=== PATIENT | male | born 1955 | race African-American/Black ===

== ENCOUNTER 2016-10-05 08:21 | Day surgery (SDC) | payer OTHER ==
[2016-10-02 11:03] VITALS: BMI 25.6
[2016-10-05] MEDS ORDERED: LEVOFLOXACIN 500 MG IVPB 100 ML IVPB ONE (10:13)
[2016-10-05] MEDS ORDERED: MIDAZOLAM HCL 2 MG/2 ML SINGLE DOSE VIAL ONE (10:19)
[2016-10-05] MEDS ORDERED: PROPOFOL 20 ML ONE ×2 (10:19)
[2016-10-05] MEDS ORDERED: LEVOFLOXACIN 500 MG PREMIX BAG IVPB ONE (10:37)
[2016-10-05] MEDS ORDERED: ONDANSETRON 4 MG/2 ML VIAL IVPUSH PRN (10:50)
[2016-10-05] MEDS ORDERED: LACTATED RINGERS SOLUTION 1,000 ML IV SCH (11:00)
[2016-10-05] MEDS ORDERED: hydrALAZINE HCL 20 MG/ML VIAL ONE (12:12)
[2016-10-05] MEDS ORDERED: hydrALAZINE HCL 20 MG/ML VIAL IVPUSH ONE (12:15)
[2016-10-05] MEDS ORDERED: ACETAMINOPHEN 325 MG TABLET (FP) PO PRN (12:21)
--- NOTE | 2016-10-05 13:41 | OP ---
Operative Note - Note: Operative Date: 10/05/16 Pre-Operative Diagnosis: left one cm ureteral stone Operation: cystoscopy/left retrograde pyelogram/left ureteroscopic laser lithotripsy/left ureteral stone basketing/attempted left ureteral stent placement Findings: one cm left ureteral distal stone unable to place stent at end of procedure/patient for left antegrade stent placement by radiology Post-Operative Diagnosis: Same as Pre-op Surgeon: Baldemar Reid Anesthesia: General Operative Report Dictated: Yes
[2016-10-05] MEDS: oxyCODONE HCL 5 MG TABLET PO PRN (16:37)
[2016-10-05] MEDS: DEXTROSE 5%-0.45% SALINE 1,000 ML IV SCH (17:03)
[2016-10-06] MEDS: DEXTROSE 5%-0.45% SALINE 1,000 ML IV SCH (06:23)
[2016-10-06 06:28] VITALS: BP 154/87; TEMP 97.8
--- NOTE | 2016-10-06 07:45 | OP ---
DATE OF OPERATION: 10/05/2016 PREOPERATIVE DIAGNOSIS: Left ureteral stone. POSTOPERATIVE DIAGNOSIS: Left ureteral stone. PROCEDURE: Cystoscopy, left retrograde pyelogram, left ureteroscopic laser lithotripsy, left ureteroscopic stone basketing, and attempted left stent placement. ATTENDING: Baldemar Teixeira MD ANESTHESIA: General. OPERATION: The patient was brought in the operating room, placed in the supine position on the operating room table. General anesthesia was administered. Levaquin was given preoperatively for surgical prophylaxis. At this point, patient was placed in the dorsal lithotomy position and prepped and draped in the usual sterile manner. Cystoscopy was performed, and the left ureteral orifice was identified. A retrograde pyelogram showed a filling defect in the distal third of the ureter with a stone measuring greater than 1 cm. A wire was then passed proximally. It was noted to be within the collecting system of the kidney. A ureteroscope was then placed into the ureter up to the level of the stone. Under direct visualization, the stone was fragmented utilizing a holmium laser. With fragmentation performed, the stone fragments were removed with a stone basket. No evidence of perforation was noted. It was noted on the left ureteroscopic stone basket that the wire had become dislodged and was in the bladder. Attempts at passing the wire proximally were unsuccessful. Significant effort was taken to place a wire into the ureter and collecting system without success. Due to the need for a drainage tube for the kidney, it was decided that the patient would require a left percutaneous nephrostomy tube with internalization of a stent in an antegrade fashion. Radiology was called, and the patient was sent to Radiology for placement of nephrostomy tube to avoid complications. DISPOSITION: The disposition of the patient was to the recovery to await for percutaneous nephrostomy tube placement. Rakan [id number]
[2016-10-06] MEDS: oxyCODONE HCL 5 MG TABLET PO PRN (09:25)
[2016-10-06] MEDS ORDERED: amLODIPine BESYLATE 10 MG TABLET (FP) PO SCH (10:00)
[2016-10-06] MEDS ORDERED: LEVOFLOXACIN 500 MG TABLET (FP) PO SCH (10:00)
[2016-10-06 14:15] VITALS: PULSE 63
--- NOTE | 2016-10-06 14:38 | PATH ---
Surgical Pathology Report Patient Name: OANH FRYE [facility]. Rec. #: [id number] /Age/Gender: 1955 (Age: 61) / M Account: [id number] Location: [address] [place] [address] Taken: 10/05/2016 Received: 10/05/2016 Reported: 10/06/2016 Physicians: Baldemar Reid Specimen(s) Received LEFT URETERAL CALCULI Clinical History Left ureteral calculi Final Diagnosis CALCULUS, LEFT URETER, EXTRACTION: CALCULUS (GROSS EXAM). SPECIMEN SENT FOR CHEMICAL ANALYSIS. Electronically Signed Alfredito Will M.D. Gross Description Received fresh labeled "left ureteral calculi" are 3 tapia, irregular calculi ranging from 0.1-0.3 cm in greatest dimension. The specimens are sent for chemical analysis. 10/05/201610/05/2016
== END 2016-10-06 17:23 | disposition home or self-care (01) ==
LOC: JASUSAT 08:21 → JASU-SURG 08:21 → J6S 14:53 → JASUSAT 10-06 17:23
PROVIDERS: ATTEND Urology
PROC: 0TC78ZZ Extirpation of Matter from Left Ureter, Via Natural or Artificial Opening Endoscopic (ICD-10-PCS; principal; 2016-10-05 10:00)
PROC: BT1FYZZ Fluoroscopy of Left Kidney, Ureter and Bladder using Other Contrast (ICD-10-PCS; 2016-10-05 10:00)
DX: N20.1 Calculus of ureter (principal)
CPT/HCPCS: 36415; 75984-TC; 76000-TC; 76098-TC; 76998-TC; 82360; 87086; 87899; 88300-TC; 94760; A4358; C1729; C1769

== ENCOUNTER 2016-10-12 08:48 | Day surgery (SDC) | payer OTHER ==
[2016-10-09 10:37] VITALS: BMI 25.6
[2016-10-12 09:09] VITALS: TEMP 98.1
[2016-10-12 12:07] VITALS: BP 153/80
[2016-10-12 14:15] VITALS: PULSE 88
== END 2016-10-12 14:15 | disposition home or self-care (01) ==
LOC: JRADIR 08:48
PROVIDERS: ATTEND Radiology Diagnostic Radiology
PROC: 0TP5X0Z Removal of Drainage Device from Kidney, External Approach (ICD-10-PCS; principal; 2016-10-12)
PROC: 0T778DZ Dilation of Left Ureter with Intraluminal Device, Via Natural or Artificial Opening Endoscopic (ICD-10-PCS; 2016-10-12)
DX: N13.9 Obstructive and reflux uropathy, unspecified (principal)
CPT/HCPCS: 50693; C1769; C1887

== ENCOUNTER 2016-11-16 07:47 | Day surgery (SDC) | payer OTHER ==
[2016-11-13 08:15] VITALS: BMI 25.6
[~2016-11-16 07:47] MED LIST: LEVOFLOXACIN 500 MG PREMIX BAG IVPB ONE
[2016-11-16] MEDS ORDERED: MIDAZOLAM HCL 2 MG/2 ML SINGLE DOSE VIAL ONE (08:44)
[2016-11-16] MEDS ORDERED: PROPOFOL 20 ML ONE ×2 (08:44)
[2016-11-16] MEDS ORDERED: LIDOCAINE HCL/PF 2% SDV 5ML VIAL ONE (08:45)
[2016-11-16] MEDS ORDERED: LEVOFLOXACIN 500 MG IVPB 100 ML IVPB ONE (11:38)
[2016-11-16] MEDS ORDERED: LEVOFLOXACIN 500 MG PREMIX BAG IVPB ONE (11:42)
[2016-11-16] MEDS ORDERED: ACETAMINOPHEN 325 MG TABLET (FP) PO PRN (12:29)
[2016-11-16] MEDS ORDERED: oxyCODONE HCL 5 MG TABLET PO PRN (12:29)
[2016-11-16] MEDS ORDERED: ONDANSETRON 4 MG/2 ML VIAL IVPUSH PRN (12:29)
[2016-11-16] MEDS ORDERED: LACTATED RINGERS SOLUTION 1,000 ML IV SCH (12:30)
[2016-11-16 13:16] VITALS: PULSE 64; TEMP 97.8
--- NOTE | 2016-11-16 13:39 | OP ---
Operative Note - Note: Operative Date: 11/16/16 Pre-Operative Diagnosis: left renal stone Operation: left eswl Findings: 7mm lower pole stone Post-Operative Diagnosis: Same as Pre-op Surgeon: Baldemar Reid Anesthesia: General Operative Report Dictated: Yes
[2016-11-16 15:41] VITALS: BP 150/80
--- NOTE | 2016-11-17 14:15 | OP ---
DATE OF OPERATION: 11/16/2016 PREOPERATIVE DIAGNOSIS: Left renal stone. POSTOPERATIVE DIAGNOSIS: Left renal stone. PROCEDURE: Left extracorporeal shock wave lithotripsy. SURGEON: Baldemar Teixeira MD ANESTHESIA: General. DESCRIPTION OF PROCEDURE: Patient was brought in the operating room, placed in supine position on the operating room table. Ultrasonography and fluoroscopy were performed. A 7-mm left lower pole stone was identified, and 3000 impulses of 17 joules of power were administered to the stone. Excellent fragmentation of the stone was noted. No complications were noted. DISPOSITION: The patient was to recovery room. Rakan [id number]
== END 2016-11-16 15:47 | disposition home or self-care (01) ==
LOC: JASU-SURG 07:47
PROVIDERS: ATTEND Urology
PROC: 0TF4XZZ Fragmentation in Left Kidney Pelvis, External Approach (ICD-10-PCS; principal; 2016-11-16 08:45)
DX: N20.0 Calculus of kidney (principal)
CPT/HCPCS: 94760

== ENCOUNTER 2017-04-05 09:08 | Day surgery (SDC) | payer OTHER ==
[2017-04-02 11:39] VITALS: BMI 27.1
[2017-04-05] MEDS ORDERED: ONDANSETRON 4 MG/2 ML VIAL IVPUSH PRN (09:57)
[2017-04-05] MEDS ORDERED: oxyCODONE HCL 5 MG TABLET PO PRN (09:57)
[2017-04-05] MEDS ORDERED: MIDAZOLAM HCL 2 MG/2 ML SINGLE DOSE VIAL ONE ×2 (09:58→10:26)
[2017-04-05] MEDS ORDERED: LACTATED RINGERS SOLUTION 1,000 ML IV SCH (10:00)
[2017-04-05] MEDS ORDERED: LIDOCAINE HCL/PF 2% SDV 5ML VIAL ONE (10:30)
[2017-04-05] MEDS ORDERED: LEVOFLOXACIN 500 MG PREMIX BAG IVPB ONE (10:46)
[2017-04-05 12:54] VITALS: TEMP 97.7
[2017-04-05 13:32] VITALS: BP 149/86; PULSE 67
--- NOTE | 2017-04-05 15:07 | OP ---
Operative Note - Note: Operative Date: 04/05/17 Pre-Operative Diagnosis: right renal stones Operation: right eswl Findings: 6 mm x 5 mm mid pole and 6 mm x 6 m mm lower pole stone on right side Post-Operative Diagnosis: Same as Pre-op Surgeon: Baldemar Reid Anesthesia: Fractional
== END 2017-04-05 13:55 | disposition home or self-care (01) ==
LOC: JASU-SURG 09:08
PROVIDERS: ATTEND Urology
PROC: 0TF3XZZ Fragmentation in Right Kidney Pelvis, External Approach (ICD-10-PCS; principal; 2017-04-05 10:15)
DX: N20.0 Calculus of kidney (principal)